=== PATIENT | female | born 1985 | race Caucasian/White ===

== ENCOUNTER 2023-07-20 19:49 | Inpatient (IN) | payer SELFPAY ==
[2023-07-20] MEDS ORDERED: Ondansetron ODT 4 MG TAB SL PRN (21:45)
[2023-07-20] MEDS ORDERED: Acetaminophen 325 MG TAB PO PRN (21:45)
[2023-07-20] MEDS ORDERED: Ondansetron PF 4 MG/2 ML Vial IVP PRN ×2 (21:45→21:57)
[2023-07-20] MEDS ORDERED: Ondansetron ODT 4 MG TAB PO PRN (21:57)
[2023-07-20 22:01] VITALS: BMI 24.7
[2023-07-20] MEDS ORDERED: Albuterol 2.5 MG (3 mL) NEB NEB PRN (22:01)
[2023-07-20] MEDS ORDERED: Lorazepam 2 MG/ML VIAL SLOW IVP PRN (22:05)
[2023-07-20] MEDS ORDERED: Montelukast Sodium 10 mg Tablet PO SCH (22:15)
[2023-07-20] MEDS ORDERED: methylPREDNISolone Sod Succ 40 MG VIAL IVP SCH (22:30)
[2023-07-20] MEDS ORDERED: Albuterol 2.5 MG (3 mL) NEB NEB SCH (22:30)
[2023-07-20] MEDS ORDERED: Ipratropium/Albuterol 3 ML NEB NEB SCH (22:30)
[2023-07-20] MEDS ORDERED: Potassium Chloride 20 MEQ TAB PO SCH (22:30)
[2023-07-20] MEDS: Acetaminophen 325 MG TAB PO PRN (22:38)
[2023-07-20] MEDS ORDERED: Oseltamivir 75 MG CAP PO SCH (23:00)
[2023-07-20] MEDS: guaiFENesin/Codeine 200 mg/20 mg 10 ml Cup PO PRN (23:40)
[2023-07-20] MEDS ORDERED: Sodium Chloride 0.9% 1,000 ML IV SCH (23:45)
[2023-07-21] MEDS ORDERED: Ibuprofen 600 MG TAB PO PRN (00:26)
[2023-07-21] MEDS ORDERED: hydrOXYzine 25 MG TAB PO SCH (00:45)
[2023-07-21] MEDS ORDERED: Ipratropium/Albuterol 3 ML NEB NEB SCH (01:30)
[2023-07-21 04:45] LABS: #Monocytes 0.2 thou/uL (0.11-0.59); #Neutrophils 2.4 thou/uL (1.40-6.50); %Lymphocytes 12.2 % (21.0-51.0); %Monocytes 5.1 % (0.0-10.0); %Neutrophils 82.4 % (42.0-75.0); Hematocrit 37.3 % (36.0-47.0); Hemoglobin 12.2 g/dL (12.0-16.0); Mean Corpuscular HGB CONC 32.7 g/dL (32.0-36.0); Mean Corpuscular Volume 88.6 fl (78.0-98.0); Mean Platelet Volume 10.3 fL (7.4-10.4); Platelet Count 261 10x3/uL (130-400); RBC Distribution Width 12.8 % (11.5-14.5); Red Blood Cell (RBC) Count 4.21 mill/uL (4.20-5.40)
[2023-07-21 05:07] LABS: Anion Gap 12 mmol/L (10-20); BUN (Urea Nitrogen) 8 mg/dL (7.0-18.7); Calc. Creatinine Clearance 122 mL/min (70-130); Calcium 8.5 mg/dL (7.8-10.44); Carbon Dioxide 19 mmol/L (22-29); Chloride 108 mmol/L (98-107); Estimated GFR 112; Glucose 142 mg/dL (70-105); Potassium 4.2 mmol/L (3.5-5.1); Sodium 135 mmol/L (136-145)
[2023-07-21] MEDS ORDERED: methylPREDNISolone Sod Succ 40 MG VIAL IVP SCH (06:00)
[2023-07-21] MEDS: Ipratropium/Albuterol 3 ML NEB NEB SCH ×3 (07:04→14:05)
[2023-07-21] MEDS ORDERED: predniSONE 20 MG TAB PO SCH (08:00)
[2023-07-21] MEDS: guaiFENesin/Codeine 200 mg/20 mg 10 ml Cup PO PRN (08:29)
[2023-07-21] MEDS ORDERED: Oseltamivir 75 MG CAP PO SCH (09:00)
[2023-07-21] MEDS: Acetaminophen 325 MG TAB PO PRN (12:39)
[2023-07-21 16:14] VITALS: BP 113/63; TEMP 98.2
[2023-07-21] MEDS ORDERED: Montelukast Sodium 10 mg Tablet PO SCH (21:00)
== END 2023-07-21 16:26 | disposition home or self-care (01) | DRG 194 ==
LOC: 2NO 21:21 → OBSVTOIN 21:57
PROVIDERS: ADMIT Student in an Organized Health Care Education/Training Program; ATTEND Internal Medicine
DX: J10.1 Influenza due to other identified influenza virus with other respiratory manifestations (principal); J45.901 Unspecified asthma with (acute) exacerbation; E87.6 Hypokalemia; G40.909 Epilepsy, unspecified, not intractable, without status epilepticus; Z91.010 Allergy to peanuts; Z88.8 Allergy status to other drugs, medicaments and biological substances; Z79.899 Other long term (current) drug therapy; Z90.710 Acquired absence of both cervix and uterus
CPT/HCPCS: 36415; 36416; 80048; 83735; 85025; 85379; 94640; J2920; J7050; J7512; J7620